=== PATIENT | female | born 1980 | race Caucasian/White ===

== ENCOUNTER 2020-11-03 12:30 | Outpatient (CLI) | payer OTHER, SELFPAY | END 2020-11-03 12:31 | disposition home or self-care (01) | LOC: SLEEP 11-04 10:31 | PROVIDERS: Family Provider Family Medicine; PCP Family Medicine; Visit Provider Family Medicine | DX: G47.33 Obstructive sleep apnea (adult) (pediatric) (principal) | CPT/HCPCS: G0399 ==

== ENCOUNTER 2021-02-24 11:23 | Outpatient (CLI) | payer OTHER, SELFPAY ==
[2021-02-24 11:37] VITALS: BP 156/100; PULSE 95; RESP 18; TEMP 36.9; O2SAT 98; BMI 36.6
[2021-02-24 12:30] VITALS: BP 130/87; PULSE 77; RESP 17; TEMP 36.2; O2SAT 98
[2021-02-24 13:30] VITALS: BP 127/86; PULSE 99; RESP 17; TEMP 36.6; O2SAT 97
== END 2021-02-24 13:30 | disposition home or self-care (01) ==
LOC: OPS 11:29
PROVIDERS: PCP Family Medicine; Visit Provider Nurse Practitioner Family
DX: U07.1 COVID-19 (principal)
CPT/HCPCS: 96365

== ENCOUNTER 2021-04-29 15:51 | Emergency (ER) | payer OTHER, SELFPAY ==
[2021-04-29 15:54] VITALS: BP 159/88; PULSE 95; RESP 18; TEMP 36.7; O2SAT 98; BMI 38.4
--- NOTE | 2021-04-29 16:22 | XRR_ITS ---
PROCEDURE INFORMATION: Exam: XR Chest Exam date and time: 04/29/2021 3:31 PM Age: 41 years old Clinical indication: Pain; Angina pectoris; Additional info: Cp TECHNIQUE: Imaging protocol: XR of the chest. Views: 1 view. COMPARISON: No relevant prior studies available. FINDINGS: Lungs: Unremarkable. No consolidation. Pleural spaces: Unremarkable. No pleural effusion. No pneumothorax. Heart/Mediastinum: Unremarkable. No cardiomegaly. Bones/joints: Unremarkable. XR/XR chest 1V portable [id number] IMPRESSION: No acute findings.
--- NOTE | 2021-04-29 16:22 | ECG_ITS ---
[facility] Test Date: 2021-04-29 Pat Name: Britney Holly Department: Room: Gender: Female Human Resources Partner: : 1980 Requested By: Otto Ingram Order Number: [id number] Mani MD: Charline Tate M.D. Measurements Intervals [place] Rate: 89 P: 50 ME: 152 QRS: 15 QRSD: 85 T: 1 QT: 345 QTc: 421 Interpretive Statements SINUS RHYTHM POSSIBLE LEFT ATRIAL ENLARGEMENT [-0.1mV P-WAVE IN V1/V2] NONSPECIFIC T-WAVE ABNORMALITY No previous ECG available for comparison Electronically Signed On 04-29-2021 19:24:45 CDT by Charline Tate M.D. [id number]
--- NOTE | 2021-04-29 16:23 | W.ED.CHESTPA ---
Documented by User: LOTUS Lainez 04/30/21 07:23 HPI - Chest Pain General: Chief Complaint: Chest Pain Stated Complaint: heart issue Time Seen by Provider: 04/29/21 16:17 History of Present Illness: Patient states that she been feeling kind bad last couple days. Said she now has chest pain and pain going down her left arm. Which started this afternoon. She said she has had 2 episodes of dizziness once yesterday and again around noon time. Denies any nausea or vomiting fever or chills. Patient did have Covid back in February and she states she got over that pretty quickly. Just recently been feeling worse. She does have a history anxiety and takes anxiety medication on a as needed basis and also takes insomnia medicine as needed. Patient states she has no heaviness in her chest she has no abdominal discomfort. Her father has history of PSVT. Associated symptoms: Deny abdominal pain, dyspnea, fever(s), nausea or vomiting Review of Systems Const: Denies: fever(s), chills or body aches Eyes: Denies: eye discomfort ENMT: Denies: throat pain Card: Reports: chest pain (And left arm) Resp: Denies: dyspnea GI: Denies: abdominal pain, nausea or vomiting Skin/Breast: Denies: rash Neuro: Denies: headache(s) Psych: Reports: anxiety; Denies: depression or suicidal ideation [facility] ED PFSH: Family History (Updated 07/30/19 @ 08:27 by Farrah De La Vega RN) Mother Hypertension Diabetes Father Heart disease Grandmother Breast cancer paternal Social History (Updated 07/30/19 @ 08:24 by Farrah De La Vega RN) Smoking and tobacco status: never smoked Alcohol intake: never Physical Exam Const: COMMON NORMALS: no acute distress, patient oriented x3 and alert HENMT: COMMON NORMALS: normocephalic and external ears normal HEAD & SCALP: normocephalic EXTERNAL EAR: Yes external ears normal Eye: COMMON NORMALS: EOMs intact bilaterally Neck/C-Spine: COMMON NORMALS: no JVD Resp: COMMON NORMALS: normal respiratory effort and No use of accessory muscles Cardio: COMMON NORMALS: no JVD GI: INSPECTION: Yes normal to inspection Extremity: COMMON NORMALS: normal to inspection and full ROM Neuro: COMMON NORMALS: patient oriented x3 SENSORIUM/ORIENTATION: Yes alert Psych: COMMON NORMALS: mental status grossly normal Skin: COMMON NORMALS: no rashes or lesions noted GENERAL SKIN EXAM: no rashes or lesions noted Course Vital Signs: Vital signs: Vital Signs Temperature 97.9 F 04/29/21 18:05 Pulse Rate 80 04/29/21 18:05 Respiratory Rate 16 04/29/21 18:05 Blood Pressure 144/92 04/29/21 18:05 Pulse Oximetry 98 04/29/21 18:05 MDM - Chest Pain Lab Data : 04/29/21 16:13 04/29/21 16:13 Radiology Impressions Chest X-Ray 04/29/21 16:22 IMPRESSION: No acute findings. Laboratory Results WBC 8.6 10^3/uL (4.0-10.0) 04/29/21 16:13 RBC 4.49 10^6/uL (4.1-5.3) 04/29/21 16:13 Hgb 13.0 g/dL (11.5-15.3) 04/29/21 16:13 Hct 39.2 % (37.0-47.0) 04/29/21 16:13 MCV 87.3 fl (81-99) 04/29/21 16:13 MCH 29.0 pg (28.0-34.0) 04/29/21 16:13 MCHC 33.2 g/dL (30.0-36.0) 04/29/21 16:13 RDW 12.5 % (12.1-15.1) 04/29/21 16:13 Plt Count 372 10^3/cmm (130-400) 04/29/21 16:13 MPV 10.0 fL (7.4-10.4) 04/29/21 16:13 Neut % (Auto) 63.2 % 04/29/21 16:13 Lymph % (Auto) 26.2 % 04/29/21 16:13 [place] % (Auto) 7.4 % 04/29/21 16:13 Eos % (Auto) 2.2 % 04/29/21 16:13 Baso % (Auto) 0.7 % 04/29/21 16:13 Neut # (Auto) 5.43 10^3/uL (1.8-7.7) 04/29/21 16:13 Lymph # (Auto) 2.3 10^3/uL (0.8-4.8) 04/29/21 16:13 [place] # (Auto) 0.6 10^3/uL (0.2-0.9) 04/29/21 16:13 Eos # (Auto) 0.2 10^3/uL (0.0-0.8) 04/29/21 16:13 Baso # (Auto) 0.1 10^3/uL (0.0-0.1) 04/29/21 16:13 Nucleated RBC % (auto) 0 % 04/29/21 16:13 Nucleated RBCs # 0.0 /100WBC 04/29/21 16:13 Sodium 137 mmol/L (136-145) 04/29/21 16:13 Potassium 4.2 mmol/L (3.5-5.1) 04/29/21 16:13 Chloride 103 mmol/L (98-107) 04/29/21 16:13 Carbon Dioxide 25 mmol/L (22-29) 04/29/21 16:13 Anion Gap 13.2 (5-19) 04/29/21 16:13 BUN 15 mg/dL (6-20) 04/29/21 16:13 Creatinine 0.6 mg/dL (0.5-0.9) 04/29/21 16:13 GFR Calculation 110.7 mL/min (90-130) 04/29/21 16:13 Glucose 87 mg/dL (65-115) 04/29/21 16:13 Calculated Osmolality 284 mOsm/kg (285-295) L 04/29/21 16:13 Calcium 9.6 mg/dL (8.5-10.5) 04/29/21 16:13 Total Bilirubin 0.9 mg/dL (0.15-1.2) 04/29/21 16:13 AST 18 U/L (0-32) 04/29/21 16:13 ALT 21 U/L (0-33) 04/29/21 16:13 Alkaline Phosphatase 72 IU/L (35-105) 04/29/21 16:13 Troponin T Baseline 6 ng/L (0-10) 04/29/21 16:13 Total Protein 7.5 g/dL (6.6-8.7) 04/29/21 16:13 Albumin 4.7 g/dL (3.5-5.2) 04/29/21 16:13 Globulin 2.8 g/dL (1.3-4.6) 04/29/21 16:13 TSH 0.93 uIU/mL (0.27-4.20) 04/29/21 16:13 Urine HCG, Qual Negative (Negative) 04/29/21 17:45 EKG Data EKG 1: EKG interpretation date: 04/29/21 EKG interpretation time: 16:03 Computer generated interpretation: Sinus rhythm? Possible left atrial enlargement. Ventricular rate 89 bpm WA interval 152 ms QRS duration 85 ms QT is 345 ms Discharge Plan Discharge Patient Disposition: Home Clinical Impression: Dizziness, Tachycardia Condition: Stable Prescriptions: No Action temazepam 15 mg capsule 15 - 30 mg PO BEDTIME 0RF duloxetine 60 mg capsule,delayed release(DR/EC) 60 mg PO BID PRN (Reason: Anxiety) 0RF Discharge Orders: Discharge ED (Routine); Ordered 04/29/21 Ordered By: Wilfrid Chaudhari Referrals: Ganesh Turcios DO [Primary Care Provider] - Patient Instructions: Chest Pain (ED) Coding Level of Care Code ED Primer Inserting Machine Operator for Chg Fwd Exam Comprehensive Documented by User: LOTUS Ag 04/29/21 17:36 HPI - Chest Pain General: Chief Complaint: Chest Pain Stated Complaint: heart issue Time Seen by Provider: 04/29/21 16:17 PFSH ED PFSH: Family History (Updated 07/30/19 @ 08:27 by Farrah De La Vega RN) Mother Hypertension Diabetes Father Heart disease Grandmother Breast cancer paternal Social History (Updated 07/30/19 @ 08:24 by Farrah De La Vega RN) Smoking and tobacco status: never smoked Alcohol intake: never Course Vital Signs: Vital signs: Vital Signs Temperature 97.9 F 04/29/21 18:05 Pulse Rate 80 04/29/21 18:05 Respiratory Rate 16 04/29/21 18:05 Blood Pressure 144/92 04/29/21 18:05 Pulse Oximetry 98 04/29/21 18:05 MDM - Chest Pain Medical Decision Making 41-year-old female comes in today with complaints of dizziness along with rapid heart rate. Patient reports intermittent episodes for the last 2 months. Patient reports feeling poorly for over 1 to 2 years. Patient does have family member that has recently been diagnosed with a tachycardia rhythm which he had to have ablation therapy and now is on medication which was her father. On exam patient appears well. Lungs are clear to auscultation. Vital signs are normal except for some elevation in blood pressure. Differential diagnosis includes tachycardia, anxiety, hypothyroidism. Laboratory values were unremarkable. Outstanding labs includes a TSH. EKG showed a sinus rhythm. Troponin was negative. We will arrange patient to follow-up with facilities project manager for further evaluation. I will also arrange for patient to be placed on normal Holter monitor for 7 to 8 days. Patient reported understanding and agreed to plan. Lab Data : 04/29/21 16:13 04/29/21 16:13 Radiology Impressions Chest X-Ray 04/29/21 16:22 IMPRESSION: No acute findings. Laboratory Results WBC 8.6 10^3/uL (4.0-10.0) 04/29/21 16:13 RBC 4.49 10^6/uL (4.1-5.3) 04/29/21 16:13 Hgb 13.0 g/dL (11.5-15.3) 04/29/21 16:13 Hct 39.2 % (37.0-47.0) 04/29/21 16:13 MCV 87.3 fl (81-99) 04/29/21 16:13 MCH 29.0 pg (28.0-34.0) 04/29/21 16:13 MCHC 33.2 g/dL (30.0-36.0) 04/29/21 16:13 RDW 12.5 % (12.1-15.1) 04/29/21 16:13 Plt Count 372 10^3/cmm (130-400) 04/29/21 16:13 MPV 10.0 fL (7.4-10.4) 04/29/21 16:13 Neut % (Auto) 63.2 % 04/29/21 16:13 Lymph % (Auto) 26.2 % 04/29/21 16:13 [place] % (Auto) 7.4 % 04/29/21 16:13 Eos % (Auto) 2.2 % 04/29/21 16:13 Baso % (Auto) 0.7 % 04/29/21 16:13 Neut # (Auto) 5.43 10^3/uL (1.8-7.7) 04/29/21 16:13 Lymph # (Auto) 2.3 10^3/uL (0.8-4.8) 04/29/21 16:13 [place] # (Auto) 0.6 10^3/uL (0.2-0.9) 04/29/21 16:13 Eos # (Auto) 0.2 10^3/uL (0.0-0.8) 04/29/21 16:13 Baso # (Auto) 0.1 10^3/uL (0.0-0.1) 04/29/21 16:13 Nucleated RBC % (auto) 0 % 04/29/21 16:13 Nucleated RBCs # 0.0 /100WBC 04/29/21 16:13 Sodium 137 mmol/L (136-145) 04/29/21 16:13 Potassium 4.2 mmol/L (3.5-5.1) 04/29/21 16:13 Chloride 103 mmol/L (98-107) 04/29/21 16:13 Carbon Dioxide 25 mmol/L (22-29) 04/29/21 16:13 Anion Gap 13.2 (5-19) 04/29/21 16:13 BUN 15 mg/dL (6-20) 04/29/21 16:13 Creatinine 0.6 mg/dL (0.5-0.9) 04/29/21 16:13 GFR Calculation 110.7 mL/min (90-130) 04/29/21 16:13 Glucose 87 mg/dL (65-115) 04/29/21 16:13 Calculated Osmolality 284 mOsm/kg (285-295) L 04/29/21 16:13 Calcium 9.6 mg/dL (8.5-10.5) 04/29/21 16:13 Total Bilirubin 0.9 mg/dL (0.15-1.2) 04/29/21 16:13 AST 18 U/L (0-32) 04/29/21 16:13 ALT 21 U/L (0-33) 04/29/21 16:13 Alkaline Phosphatase 72 IU/L (35-105) 04/29/21 16:13 Troponin T Baseline 6 ng/L (0-10) 04/29/21 16:13 Total Protein 7.5 g/dL (6.6-8.7) 04/29/21 16:13 Albumin 4.7 g/dL (3.5-5.2) 04/29/21 16:13 Globulin 2.8 g/dL (1.3-4.6) 04/29/21 16:13 TSH 0.93 uIU/mL (0.27-4.20) 04/29/21 16:13 Urine HCG, Qual Negative (Negative) 04/29/21 17:45 Discharge Plan Discharge Patient Disposition: Home Clinical Impression: Dizziness, Tachycardia Condition: Stable Prescriptions: No Action temazepam 15 mg capsule 15 - 30 mg PO BEDTIME 0RF duloxetine 60 mg capsule,delayed release(DR/EC) 60 mg PO BID PRN (Reason: Anxiety) 0RF Discharge Orders: Discharge ED (Routine); Ordered 04/29/21 Ordered By: Wilfrid Chaudhari Referrals: Ganesh Turcios DO [Primary Care Provider] - Patient Instructions: Chest Pain (ED) Coding Level of Care Code ED Primer Inserting Machine Operator for Antony Fwd Exam Comprehensive
[2021-04-29 16:30] LABS: Basophils # 0.1 10^3/uL (0.0-0.1); Basophils % 0.7 %; Eosinophils # 0.2 10^3/uL (0.0-0.8); Eosinophils % 2.2 %; Hematocrit 39.2 % (37.0-47.0); Lymphocytes # 2.3 10^3/uL (0.8-4.8); Lymphocytes % 26.2 %; Mean Corpuscular HGB Conc 33.2 g/dL (30.0-36.0); Mean Corpuscular Volume 87.3 fl (81-99); Monocytes # 0.6 10^3/uL (0.2-0.9); Monocytes % 7.4 %; Neutrophils # 5.43 10^3/uL (1.8-7.7); Neutrophils % 63.2 %; Nucleated Red Blood Cells % 0 %; Platelet Count 372 10^3/cmm (130-400); Red Blood Count 4.49 10^6/uL (4.1-5.3); Red Cell Distribution Width 12.5 % (12.1-15.1); White Blood Count 8.6 10^3/uL (4.0-10.0)
[2021-04-29 16:46] LABS: Troponin(5th) Baseline 6 ng/L (0-10)
[2021-04-29 16:47] LABS: Alanine Aminotransferase 21 U/L (0-33); Albumin Level 4.7 g/dL (3.5-5.2); Alkaline Phosphatase 72 IU/L (35-105); Anion Gap 13.2 (5-19); Aspartate Amino Transferase 18 U/L (0-32); Blood Urea Nitrogen 15 mg/dL (6-20); Calcium 9.6 mg/dL (8.5-10.5); Carbon Dioxide 25 mmol/L (22-29); Chloride 103 mmol/L (98-107); Globulin 2.8 g/dL (1.3-4.6); Glomerular Filtration Rate 110.7 mL/min (90-130); Glucose 87 mg/dL (65-115); Osmolality Calculated 284 mOsm/kg (285-295); Potassium 4.2 mmol/L (3.5-5.1); Sodium 137 mmol/L (136-145); Total Bilirubin 0.9 mg/dL (0.15-1.2); Total Protein 7.5 g/dL (6.6-8.7)
[2021-04-29 18:00] VITALS: BP 130/96; BP 141/98; BP 144/92; PULSE 80; PULSE 83; PULSE 87
[2021-04-29 18:04] VITALS: BP 144/92; PULSE 80; RESP 16; TEMP 36.6; O2SAT 98
[2021-04-29 18:05] VITALS: BP 144/92; PULSE 80; RESP 16; TEMP 36.6; O2SAT 98
[2021-04-29 18:40] LABS: Thyroid Stimulating Hormone 0.93 uIU/mL (0.27-4.20)
--- NOTE | 2021-04-30 10:12 | DCPLANNER ---
Addendum entered by Susanne Shea 05/15/21 09:13: Patient had a follow up appointment scheduled with heart care for an appointment and one for testing - patient attended both Addendum entered by Susanne Shea 05/01/21 13:51: Patient has a holter monitor scheduled for Thursday, May 06, 2021 at 11:00. [facility] will call patient with appointment information. Addendum entered by Susanne Shea 04/30/21 14:00: manager motor had message to schedule an out patient halter monitor for patient. manager motor faxed signed order to [facility], who will call patient with appointment information. Original Note: manager motor had message to schedule a follow up appointment for patient with [facility]. manager motor called [facility], spoke with Reyna Del Real, gave clinic patients information. A follow up appointment was scheduled for Thursday, May 06, 2021 at 10:[address] Tate. manager motor called phone number [phone], unable to speak with patient at this time, a voicemail was left for patient to return special education case manager phone call.
== END 2021-04-29 18:00 | disposition home or self-care (01) ==
PROVIDERS: Nurse Practitioner Family; Emergency Provider Nurse Practitioner Family; PCP Family Medicine
DX: R00.0 Tachycardia, unspecified (principal); R42 Dizziness and giddiness
CPT/HCPCS: 71045; 80053; 81025; 84443; 84484; 85025; 93005; 99283

== ENCOUNTER 2021-07-01 14:39 | Outpatient (CLI) | payer OTHER, SELFPAY ==
--- NOTE | 2021-07-01 14:30 | USCV_ITS ---
Britney Holly Age: 41 Gender: F : 1980 Exam Date: 07/01/2021 14:58 Ordering Phys: Charline Tate MD ([email or web address]) Technologist: CATIA Exam Location: [facility] Indication: chest pain BP: 178 / 118 HR: 88 Rhythm: Sinus Technical Quality: Adequate MEASUREMENTS (Male / Female) Normal Values 2D ECHO LV Diastolic Diameter PLAX 3.6 cm 4.2 - 5.9 / 3.9 - 5.3 cm LV Systolic Diameter PLAX 2.5 cm IVS Diastolic Thickness 1.0 cm 0.6 - 1.0 / 0.6 - 0.9 cm IVS Systolic Thickness 1.4 cm LVPW Diastolic Thickness 0.9 cm 0.6 - 1.0 / 0.6 - 0.9 cm LVPW Systolic Thickness 1.6 cm LVOT Diameter 2.0 cm LV Ejection Fraction 2D Teich 59.7 % LV Ejection Fraction MOD 2C 59.9 % LV Ejection Fraction 2C AL 60.8 % LA Diameter 3.1 cm LA Width 2.8 cm LA Height 4.2 cm RA Width 3.3 cm RA Height 3.9 cm Aorta at Sinotubular Diameter 2.1 cm IVC Diameter 1.4 cm M-MODE Aortic Annulus Diameter 2.4 cm LA Ao Ratio MM 1.3 MV E Point Septal Separation 0.6 cm DOPPLER AV Peak Velocity 143.7 cm/s LVOT Peak Velocity 101.0 cm/s AV Area Cont Eq vti 2.1 cm squared AV Area Cont Eq pk 2.2 cm squared MV Peak Velocity 111.0 cm/s MV Area PHT 5.0 cm squared Mitral E to A Ratio 1.3 MV E' Velocity 44.5 cm/s Mitral E to MV E' Ratio 6.9 Mitral E to LV E' Lateral Ratio 6.6 Mitral E to LV E' Septal Ratio 7.3 TR Peak Velocity 275.0 cm/s TR Peak Gradient 30.3 mmHg TR Mean Velocity 205.9 cm/s TR Mean Gradient 17.3 mmHg TR Velocity Time Integral 65.2 cm Right Atrial Pressure 3.0 mmHg Pulmonary Artery Systolic Pressu 33.3 mmHg RV Acceleration Time 0.2 s RV Ejection Time 0.3 s RV AcT/ET 0.5 FINDINGS Left Ventricle Normal left ventricular size and systolic function, EF 59 %. No regional wall motion abnormalities. Right Ventricle The right ventricle is normal in size and function. Right Atrium The right atrium is normal in size. Left Atrium The left atrium is normal in size. Mitral Valve Trace mitral valve regurgitation. Aortic Valve No gross abnormalities noted Tricuspid Valve Trace tricuspid valve regurgitation. TAPSE of 2.36 Pulmonic Valve No gross abnormalities noted Pericardium Normal pericardium without effusion. Aorta Normal ascending aorta dimension. IVC The IVC was of normal size CONCLUSIONS Normal left ventricular size and systolic function, EF 59 %. No regional wall motion abnormalities. Normal RV size and ejection fraction. Trace of mitral and tricuspid regurgitation Estimated pulmonary artery peak systolic pressure of 33 mmHg There are no intracardiac masses. There is no pericardial effusion. No similar previous studies are available for comparison Dr Charline Tate MD FAC (Electronically Signed) Final Date: 02 Jul 2021 08:33 S
== END 2021-07-01 14:40 | disposition home or self-care (01) ==
PROVIDERS: PCP Family Medicine; Visit Provider Internal Medicine Cardiovascular Disease
DX: I08.1 Rheumatic disorders of both mitral and tricuspid valves (principal); R06.00 Dyspnea, unspecified; R94.31 Abnormal electrocardiogram [ECG] [EKG]
CPT/HCPCS: 93306

== ENCOUNTER 2022-02-23 15:19 | Outpatient (CLI) | payer OTHER, SELFPAY ==
--- NOTE | 2022-02-23 15:32 | MM_ITS ---
WS: [id number] BILATERAL 3D TOMOSYNTHESIS DIGITAL SCREENING MAMMOGRAPHY WITH CAD CLINICAL INFORMATION: SCREENING HISTORY: Screening mammogram. No current complaints. COMPARISON: None. TECHNIQUE: Bilateral CC and MLO views. FINDINGS: Scattered fibroglandular densities bilaterally. No suspicious focal mass, asymmetry, calcifications, or architectural distortion. No evidence of malignancy. Incidental intramammary lymph node upper oute r LEFT breast MM/[place] [id number] IMPRESSION: BI-RADS: 2-Benign FOLLOW UP: 1 Year Follow-up Recommend return to annual screening mammography.
== END 2022-02-23 15:20 | disposition home or self-care (01) ==
LOC: RAD 15:22
PROVIDERS: PCP Family Medicine; Visit Provider Nurse Practitioner Family
DX: Z12.31 Encounter for screening mammogram for malignant neoplasm of breast (principal)
CPT/HCPCS: 77063; 77067

== ENCOUNTER 2023-02-22 09:43 | Outpatient (CLI) | payer OTHER, SELFPAY ==
--- NOTE | 2023-02-22 12:33 | P.DIET_ITS ---
Reason for Visit: E66.01 - Morbid (severe) obesity due to excess zhanna Person Interviewed: Patient Medical History, Labs and Background: Britney mentioned issues with sleep and hypertension and some anxiety - this has been a hard year . Height: 5 ft 3 in Weight: 235 lb BMI: 41.7 kg/m2 UBW: Pt would like to be under 200 lbs. IBW: 115lbs give or take 10% Weight History: Jennie said she is uncomfortable where she is right now with her weight and has tried many diets which led to losing wt, but then gaining it back. Concerns and Goals: She would like to be under 200 lbs. Sleep Hygiene: She has difficulty sleeping and mentioned she would be picking up a home sleep study today. 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 When she gets home, anywhere between 4:15 and 6:00 depending on the day, she is exhausted. Thought she tried going to a gym, it wasn't working. Her newest venture, which she is excited about, is a home pilates program. Other Feeding Issues: She is an stress eater per her self report. And, during work, there are often sweets/ sodas that she can choose. Food Allergies and Sensitivities: NKA to food. 24 Hour Recall: Breakfast Time: 6:30-7:00 Bagel Snack Time: Lunch Time: 11:30-2:00 Dewy Rose from home/ something from cafeteria at [facility] Snack Time: Dinner Time: 6:00 Dinner w/family Snack Time: Eating Out: Before, they ate out a lot - especially when there were sporting events. Jennie said they have cut back to Tuesday with her in laws and maybe 1 other time during the week. Soda vs Milk vs Water: She doesn't like water, so we talked about putting fruit or cucumbers/mint in her water to give it an appealing flavor. Regular soda is something she likes - 1/day or 3-4/day. Coffee is not her thing. Additional Comments: When I asked about support systems, she said that her and a co-worker would both be encouraging and helpful. I introduced her via video to Leni Knutson who has lost 100 lbs by addressing behaviors and habits. Recommendations: Assessment: Jennie was relieved when I told her that I wasn't going to ask her to cut out certain food groups or be super restrictive. She wanted to be able to cook for her who also wants to lose weight, as well as their daughter who isn't restrictive. We talked about asking herself 2 questions Am I hungry , then stopping mcfp through a meal and asking Am I full . Diagnosis: Excessive energy intake r/t stress eating AEB BMI of 41.7 kg/m2. Monitoring and Interventions: We talked about 10% wt loss initially as that has been shown to have cardiovascular benefits. Eventually she wants to weigh under 200 lbs. My whole paradigm was towards small changes in habits and behavior, not elimination of foods or food groups. We both agreed that leads to binging and feeling worse about yourself. I printed out 5 days of meal plans for 1500 kcals, not to restrict, but to give a template about amounts that are appropriate per meal. We didn't eliminate any particular food, but we did set a goal of 1 soda and 1 small glass sweet tea per day and drinking more water - having a water bottle that she drank from throughout the day with a goal of between 32-64 oz water/day. We also discussed healthful snacks and that if she wasn't going to/ didn't have time to eat lunch then she could pack a couple of healthy snacks (a printed a list of ideas). Her colleague at work is someone who she can ask for help with being active -even just walking around during the day. Because of sleep issues, I mentioned Melatonin as something to ask her MD if it would interfere with her other meds. Discussed that sleep hygiene affects our appetite and leads to cravings that are difficult to deal with. Lastly recommended not waiting until she was starving to eat as that leads to choices that you regret later. She has my office number/extension and my email for f/u questions. Coding Level of Care Code Nutrition/Individ/Init 60 min Time Spent (min) 60
== END 2023-02-22 09:44 | disposition home or self-care (01) ==
LOC: DIET 09:43
PROVIDERS: PCP Family Medicine; Visit Provider Family Medicine
DX: Z71.3 Dietary counseling and surveillance (principal); E66.01 Morbid (severe) obesity due to excess calories; Z68.42 Body mass index [BMI] 45.0-49.9, adult
CPT/HCPCS: 97802

== ENCOUNTER 2023-02-22 15:45 | Outpatient (CLI) | payer OTHER, SELFPAY | END 2023-02-22 15:46 | disposition home or self-care (01) | LOC: SLEEP 02-23 13:15 | PROVIDERS: PCP Family Medicine; Visit Provider Family Medicine | DX: G47.30 Sleep apnea, unspecified (principal); R06.83 Snoring | CPT/HCPCS: G0399 ==

== ENCOUNTER 2023-03-18 13:57 | Outpatient (CLI) | payer OTHER, SELFPAY ==
--- NOTE | 2023-03-18 14:02 | XR_ITS ---
WS: [id number] XR KUB [id number] REASON FOR EXAM: flank pain FINDINGS: No free air or retroperitoneal air. The bowel gas pattern is unremarkable. No mass or significant calcification is seen. No urinary tract calculus identified. IMPRESSION: No significant abnormality.
== END 2023-03-18 13:58 | disposition home or self-care (01) ==
LOC: RAD 13:57
PROVIDERS: PCP Family Medicine; Visit Provider Family Medicine
DX: R10.9 Unspecified abdominal pain (principal)
CPT/HCPCS: 74018

== ENCOUNTER 2023-03-18 22:01 | Emergency (ER) | payer OTHER, SELFPAY ==
[2023-03-18 22:09] VITALS: BP 161/101; PULSE 98; RESP 16; TEMP 36.6; O2SAT 98
[2023-03-18 22:25] LABS: Add Urine Microscopic? NO; Charge for UA Resulting for Rev
[2023-03-18 22:27] LABS: Bilirubin Urine Neg (Negative); Blood Urine Neg (Negative); Glucose Urine UA Norm (Normal); Ketones Urine Negative (Negative); Leukocyte Esterase Urine Negative (Negative); Nitrate Urine Negative (Negative); Protein Urine Neg (Negative); Urine Appearance Clear (CLEAR); Urine Color Yellow (Yellow); Urobilinogen Urine Norm (Negative); pH Urine 6 (5-7)
[2023-03-18 22:54] LABS: Basophils # 0.1 10^3/uL (0.0-0.1); Basophils % 0.6 %; Eosinophils # 0.3 10^3/uL (0.0-0.8); Eosinophils % 3.3 %; Hematocrit 39.7 % (36-47); Lymphocytes # 2.4 10^3/uL (0.8-4.8); Lymphocytes % 27.2 %; Mean Corpuscular Hemoglobin 28.6 pg (27-33); Mean Corpuscular Volume 86.7 fl (85-98); Mean Platelet Volume 9.6 fL (7.4-10.4); Monocytes # 0.6 10^3/uL (0.2-0.9); Monocytes % 6.9 %; Neutrophils % 61.5 %; Nucleated Red Blood Cells % 0 %; Platelet Count 329 10^3/cmm (157-399); Red Blood Count 4.58 10^6/uL (3.85-5.65); Red Cell Distribution Width 12.8 % (12.1-15.1); White Blood Count 8.78 10^3/uL (3.29-11.43)
[2023-03-18 23:14] LABS: Alanine Aminotransferase 20 U/L (0-33); Albumin Level 4.1 g/dL (3.5-5.2); Alkaline Phosphatase 80 U/L (35-105); Anion Gap 13.9 (5-19); Aspartate Amino Transferase 15 U/L (0-32); Blood Urea Nitrogen 15 mg/dL (6-20); Carbon Dioxide 25 mmol/L (22-29); Chloride 103 mmol/L (98-107); Globulin 3.4 g/dL (1.3-4.6); Glomerular Filtration Rate 78.7 mL/min (90-130); Glucose 120 mg/dL (65-115); Osmolality Calculated 288 mOsm/kg (285-295); Potassium 3.9 mmol/L (3.5-5.1); Sodium 138 mmol/L (136-145); Total Bilirubin 0.4 mg/dL (0.15-1.2); Total Protein 7.5 g/dL (6.6-8.7)
--- NOTE | 2023-03-18 23:38 | ED_ITS ---
Documented by User: LATASHA Arteaga 03/19/23 01:10 HPI - Abdominal Pain 2 General: Chief Complaint: Abdominal Pain Stated Complaint: Peeing Blood Time Seen by Provider: 03/18/23 23:03 Source: patient Mode of arrival: ambulatory Limitations: no limitations History of Present Illness: Patient is a nice 43-year-old female presents to ED today with a complaint of pain to the left side of her abdomen and back as well as radiation into her pelvis. Patient describes feelings of pressure to her abdomen and pelvis. She tells me she was having symptoms of urinary urgency and dysuria and was seen at a walk-in clinic. She was told she had trace blood on her urine analysis. She states she was referred for a KUB to rule out a kidney stone. Patient states she has been straining her urine. She noticed today a small amount of visible blood in the urine. She is not having any flank pain currently. She reports feeling some type of knot/mass near her vagina when she wipes. She has not noticed any vaginal discharge or vaginal odor. No painful intercourse. No history of pelvic organ prolapse. She has not noticed any vaginal bleeding. Denies chance of stating her has had a vasectomy. Reports last PAP smear was last year and reportedly normal. MD elicited complaint: abdominal pain Pertinent past history: none Onset (ago): day(s) Pain Consistency: intermittent Location: LLQ and Pelvis Severity: moderate Pain scale (0-10): 6 Radiation: none Migration to: no migration Exacerbating factors: nothing Relieving factors: nothing Associated Symptoms: Reports bloating, dysuria, hematuria and nausea; Denies change in bowel habits, change in stool character, chills, constipation, GI cramping, diarrhea, fever(s), hematochezia, melena and vomiting Related Data: Date of Last Menstrual Period: 12/16/22 Patient : No Review of Systems 2 Const: Denies: fever(s), chills, body aches, fatigue or malaise Card: Denies: chest pain Resp: Denies: dyspnea GI: Reports: abdominal pain, nausea and bloating; Denies: vomiting, diarrhea, constipation, GI cramping, change in bowel habits, rectal pain, rectal swelling, rectal itching, change in stool character, hematochezia, melena or mucus in stool : Reports: dysuria, urinary urgency, hematuria and pelvic pain; Denies: flank pain, difficulty voiding, urinary frequency, urinary hesitancy, dribbling, genital pruritis, vaginal odor, vaginal bleeding or vaginal discharge Musc: Reports: back pain; Denies: neck pain, extremity pain, extremity swelling or joint pain Skin/Breast: Denies: rash Neuro: Denies: headache(s), numbness in extremities, weakness in extremities or sensory changes PFSH ED 2 PFSH: Medical History COVID Anxiety Insomnia Depression Surgical History S/P cholecystectomy 2015- Dr. Kelly, at [facility] History of right knee surgery 2010- Dr. Paredes at [facility] H/O section 11/2007-Dr. Mercer at [facility] [place] Family History Mother Hypertension Diabetes Father Heart disease CAD (coronary artery disease) Grandmother Breast cancer paternal Cancer Family/Other Bleeding disorder Grandfather Dementia Other Clotting disorder Hyperlipidemia Denies family history of Liver disease Autoimmune disease Hyperthyroidism Hypothyroidism Psychiatric illness Chronic kidney disease (CKD) Suicide Anesthesia complication Lung disease Cardiomyopathy Stroke Social History Smoking and tobacco/nicotine status: never used tobacco/nicotine Second hand smoke exposure: No Alcohol intake: never Substance/Drug Use: never Lives independently: Yes Marital status: Number of children: 2 Current occupational status: employed Current occupation: School counselor Special mehrdad needs: No Agree to transfusion: Yes Female Reproductive History: Date of last menstrual period: 12/16/22 Physical Exam 2 Const: COMMON NORMALS: no acute distress, patient oriented x3, no limitations, alert and well nourished GENERAL APPEARANCE: cooperative O RIENTATION/CONSCIOUSNESS: Yes awake, Yes oriented to person, Yes oriented to place and Yes oriented to time Eye: COMMON NORMALS: no scleral icterus GI: COMMON NORMALS: Normal to inspection, nondistended, normoactive bowel sounds present, Soft to palpation, No hepatosplenomegaly present and no masses INSPECTION: Yes normal to inspection AUSCULTATION: Yes normoactive bowel sounds PALPATION: Yes Soft to palpation, Yes Tenderness to palpation present (GI) (L mid to lower abdomen/pelvis), Yes Guarding due to palpation present (GI), No Rigid due to palpation and Yes No hepatosplenomegaly present : COMMON NORMALS: Yes no CVA tenderness BLADDER/KIDNEY EXAM: Yes no CVA tenderness SPECULUM EXAM - CERVIX: Yes Other cervical findings present (normal cervical examination) GENITAL IMAGES (FEMALE): 1. very small pea sized possible small cyst; she states this is the lump she has been feeling when she wipes; no other genital lesions; this is not herpetic appearing Back/Pelvis: COMMON NORMALS: no CVA tenderness and thoracic and lumbar spine normal to inspection Extremity: GENERAL: Yes normal exam except as noted Neuro: BONNIE COMA SCALE: document GCS findings Bonnie coma scale eye opening: Spontaneous Bonnie coma scale verbal response: Orientated Bonnie coma scale motor response: Obey commands [place] coma scale total score: 15 COMMON NORMALS: patient oriented x3 SENSORIUM/ORIENTATION: Yes alert, Yes oriented to person, Yes oriented to place and Yes oriented to time Skin: COMMON NORMALS: no rashes or lesions noted GENERAL SKIN EXAM: no rashes or lesions noted Course 2 Vital Signs: Vital signs: Vital Signs Temperature 98 F 03/18/23 22:09 Pulse Rate 98 03/18/23 22:09 Respiratory Rate 16 03/18/23 22:09 Blood Pressure 161/101 03/18/23 22:09 Pulse Oximetry 98 03/18/23 22:09 Oxygen Delivery Me thod Room Air 03/18/23 22:09 MDM - Abdominal Pain Lab Data 03/18/23 22:40 03/18/23 22:40 Labs/Radiology: Radiology Impressions Abdomen/Pelvis CT 03/18/23 23:40 IMPRESSION: 1. No acute findings. 2. 3.3 cm simple cyst in the left ovary. Laboratory Results WBC 8.78 10^3/uL (3.29-11.43) 03/18/23 22:40 RBC 4.58 10^6/uL (3.85-5.65) 03/18/23 22:40 Hgb 13.10 g/dL (11.27-16.99) 03/18/23 22:40 Hct 39.7 % (36-47) 03/18/23 22:40 MCV 86.7 fl (85-98) 03/18/23 22:40 MCH 28.6 pg (27-33) 03/18/23 22:40 MCHC 33.0 g/dL (30-55) 03/18/23 22:40 RDW 12.8 % (12.1-15.1) 03/18/23 22:40 Plt Count 329 10^3/cmm (157-399) 03/18/23 22:40 MPV 9.6 fL (7.4-10.4) 03/18/23 22:40 Neut % (Auto) 61.5 % 03/18/23 22:40 Lymph % (Auto) 27.2 % 03/18/23 22:40 Pickett % (Auto) 6.9 % 03/18/23 22:40 Eos % (Auto) 3.3 % 03/18/23 22:40 Baso % (Auto) 0.6 % 03/18/23 22:40 Neut # (Auto) 5.40 10^3/uL (1.8-7.7) 03/18/23 22:40 Lymph # (Auto) 2.4 10^3/uL (0.8-4.8) 03/18/23 22:40 Pickett # (Auto) 0.6 10^3/uL (0.2-0.9) 03/18/23 22:40 Eos # (Auto) 0.3 10^3/uL (0.0-0.8) 03/18/23 22:40 Baso # (Auto) 0.1 10^3/uL (0.0-0.1) 03/18/23 22:40 Nucleated RBC % (auto) 0 % 03/18/23 22:40 Nucleated RBCs # 0.0 /100WBC 03/18/23 22:40 Sodium 138 mmol/L (136-145) 03/18/23 22:40 Potassium 3.9 mmol/L (3.5-5.1) 03/18/23 22:40 Chloride 103 mmol/L (98-107) 03/18/23 22:40 Carbon Dioxide 25 mmol/L (22-29) 03/18/23 22:40 Anion Gap 13.9 (5-19) 03/18/23 22:40 BUN 15 mg/dL (6-20) 03/18/23 22:40 Creatinine 0.8 mg/dL (0.5-0.9) 03/18/23 22:40 GFR Calculation 78.7 mL/min (90-130) L 03/18/23 22:40 Glucose 120 mg/dL (65-115) H 03/18/23 22:40 Calculated Osmolality 288 mOsm/kg (285-295) 03/18/23 22:40 Calcium 9.0 mg/dL (8.5-10.5) 03/18/23 22:40 Total Bilirubin 0.4 mg/dL (0.15-1.2) 03/18/23 22:40 AST 15 U/L (0-32) 03/18/23 22:40 ALT 20 U/L (0-33) 03/18/23 22:40 Alkaline Phosphatase 80 U/L (35-105) 03/18/23 22:40 Total Protein 7.5 g/dL (6.6-8.7) 03/18/23 22:40 Albumin 4.1 g/dL (3.5-5.2) 03/18/23 22:40 Globulin 3.4 g/dL (1.3-4.6) 03/18/23 22:40 HCG, Qual Negative (Negative) 03/18/23 22:20 Urine Color Yellow (Yellow) 03/18/23 22:20 Urine Appearance Clear (CLEAR) 03/18/23 22:20 Urine pH 6 (5-7) 03/18/23 22:20 Ur Specific [place] 1.020 (1.005-1.030) 03/18/23 22:20 Urine Protein Neg (Negative) 03/18/23 22:20 Urine Glucose (UA) Norm (Normal) 03/18/23 22:20 Urine Ketones Negative (Negative) 03/18/23 22:20 Urine Blood Neg (Negative) 03/18/23 22:20 Urine Nitrate Negative (Negative) 03/18/23 22:20 Urine Bilirubin Neg (Negative) 03/18/23 22:20 Urine Urobilinogen Norm mg/dL (Negative) 03/18/23 22:20 Ur Leukocyte Esterase Negative (Negative) 03/18/23 22:20 Discharge Plan Discharge Patient Disposition: Home Clinical Impression: Ovarian cyst Qualifiers: Laterality: left Qualified Code(s): N83.202 - Unspecified ovarian cyst, left side Condition: Stable Prescriptions: No Action fluoxetine 40 mg capsule 40 mg PO DAILY Qty: 90 1RF hydroxyzine HCl 25 mg tablet 25 mg PO BID PRN (Reason: anxiety) Qty: 120 1RF trazodone 100 mg tablet 100 mg PO DAILY Qty: 90 1RF duloxetine 30 mg capsule,delayed release(DR/EC) 30 mg PO DAILY Qty: 90 1RF Discharge Orders: Discharge ED (Routine); Ordered 03/19/23 Ordered By: Hal Wise Referrals: Caleb Hooper MD [Primary Care Provider] - 1 week Patient Instructions: Ovarian Cyst (ED) Activity Restrictions/Additional Instructions: Your lab work was unremarkable for any acute cause of abdominal pain. Your CT scan showed an left ovarian cyst. Please follow-up with your family practice physician and/or TRACTOR MECHANIC APPRENTICE for further evaluation and treatment. Coding Level of Care Code ED Tool Distributor for Chg Fwd Documented by User: Hal Wise DO 03/19/23 04:04 HPI - Abdominal Pain 2 General: Chief Complaint: Abdominal Pain Stated Complaint: Peeing Blood Time Seen by Provider: 03/18/23 23:03 PFS ED 2 PFSH: Medical History COVID Anxiety Insomnia Depression Surgical History S/P cholecystectomy 2015- Dr. Kelly, at [facility] History of right knee surgery 2010- Dr. Paredes at [facility] H/O section 11/2007-Dr. Mercer at [facility] Family History Mother Hypertension Diabetes Father Heart disease CAD (coronary artery disease) Grandmother Breast cancer paternal Cancer Family/Other Bleeding disorder Grandfather Dementia Other Clotting disorder Hyperlipidemia Denies family history of Liver disease Autoimmune disease Hyperthyroidism Hypothyroidism Psychiatric illness Chronic kidney disease (CKD) Suicide Anesthesia complication Lung disease Cardiomyopathy Stroke Social History Smoking and tobacco/nicotine status: never used tobacco/nicotine Second hand smoke exposure: No Alcohol intake: never Substance/Drug Use: never Lives independently: Yes Marital status: Number of children: 2 Current occupational status: employed Current occupation: School counselor Special mehrdad needs: No Agree to transfusion: Yes Physical Exam 2 : GENITAL IMAGES (FEMALE): 1. very small pea sized possible small cyst; she states this is the lump she has been feeling when she wipes; no other genital lesions; this is not herpetic appearing Neuro: BONNIE COMA SCALE: document GCS findings [place] coma scale total score: 15 Course 2 Vital Signs: Vital signs: Vital Signs Temperature 98 F 03/18/23 22:09 Pulse Rate 98 03/18/23 22:09 Respiratory Rate 16 03/18/23 22:09 Blood Pressure 161/101 03/18/23 22:09 Pulse Oximetry 98 03/18/23 22:09 Oxygen Delivery Me thod Room Air 03/18/23 22:09 MDM - Abdominal Pain Medical Decision Making Patient's care was transferred over to myself upon checkout a midlevel at the end of her shift. We are waiting on CT scan. The CT scan come back showed no acute findings except 3.3 simple cyst on left ovary. Otherwise lab work was unremarkable. Differential Diagnosis Unlikely abdominal pain, acute appendicitis, calculus of kidney, constipation, diverticulitis, endometriosis, gastroenteritis, pancreatitis or small bowel obstruction Lab Data I reviewed the patient's lab results. 03/18/23 22:40 03/18/23 22:40 Labs/Radiology: Radiology Impressions Abdomen/Pelvis CT 03/18/23 23:40 IMPRESSION: 1. No acute findings. 2. 3.3 cm simple cyst in the left ovary. Laboratory Results WBC 8.78 10^3/uL (3.29-11.43) 03/18/23 22:40 RBC 4.58 10^6/uL (3.85-5.65) 03/18/23 22:40 Hgb 13.10 g/dL (11.27-16.99) 03/18/23 22:40 Hct 39.7 % (36-47) 03/18/23 22:40 MCV 86.7 fl (85-98) 03/18/23 22:40 MCH 28.6 pg (27-33) 03/18/23 22:40 MCHC 33.0 g/dL (30-55) 03/18/23 22:40 RDW 12.8 % (12.1-15.1) 03/18/23 22:40 Plt Count 329 10^3/cmm (157-399) 03/18/23 22:40 MPV 9.6 fL (7.4-10.4) 03/18/23 22:40 Neut % (Auto) 61.5 % 03/18/23 22:40 Lymph % (Auto) 27.2 % 03/18/23 22:40 Pickett % (Auto) 6.9 % 03/18/23 22:40 Eos % (Auto) 3.3 % 03/18/23 22:40 Baso % (Auto) 0.6 % 03/18/23 22:40 Neut # (Auto) 5.40 10^3/uL (1.8-7.7) 03/18/23 22:40 Lymph # (Auto) 2.4 10^3/uL (0.8-4.8) 03/18/23 22:40 Pickett # (Auto) 0.6 10^3/uL (0.2-0.9) 03/18/23 22:40 Eos # (Auto) 0.3 10^3/uL (0.0-0.8) 03/18/23 22:40 Baso # (Auto) 0.1 10^3/uL (0.0-0.1) 03/18/23 22:40 Nucleated RBC % (auto) 0 % 03/18/23 22:40 Nucleated RBCs # 0.0 /100WBC 03/18/23 22:40 Sodium 138 mmol/L (136-145) 03/18/23 22:40 Potassium 3.9 mmol/L (3.5-5.1) 03/18/23 22:40 Chloride 103 mmol/L (98-107) 03/18/23 22:40 Carbon Dioxide 25 mmol/L (22-29) 03/18/23 22:40 Anion Gap 13.9 (5-19) 03/18/23 22:40 BUN 15 mg/dL (6-20) 03/18/23 22:40 Creatinine 0.8 mg/dL (0.5-0.9) 03/18/23 22:40 GFR Calculation 78.7 mL/min (90-130) L 03/18/23 22:40 Glucose 120 mg/dL (65-115) H 03/18/23 22:40 Calculated Osmolality 288 mOsm/kg (285-295) 03/18/23 22:40 Calcium 9.0 mg/dL (8.5-10.5) 03/18/23 22:40 Total Bilirubin 0.4 mg/dL (0.15-1.2) 03/18/23 22:40 AST 15 U/L (0-32) 03/18/23 22:40 ALT 20 U/L (0-33) 03/18/23 22:40 Alkaline Phosphatase 80 U/L (35-105) 03/18/23 22:40 Total Protein 7.5 g/dL (6.6-8.7) 03/18/23 22:40 Albumin 4.1 g/dL (3.5-5.2) 03/18/23 22:40 Globulin 3.4 g/dL (1.3-4.6) 03/18/23 22:40 HCG, Qual Negative (Negative) 03/18/23 22:20 Urine Color Yellow (Yellow) 03/18/23 22:20 Urine Appearance Clear (CLEAR) 03/18/23 22:20 Urine pH 6 (5-7) 03/18/23 22:20 Ur Specific [place] 1.020 (1.005-1.030) 03/18/23 22:20 Urine Protein Neg (Negative) 03/18/23 22:20 Urine Glucose (UA) Norm (Normal) 03/18/23 22:20 Urine Ketones Negative (Negative) 03/18/23 22:20 Urine Blood Neg (Negative) 03/18/23 22:20 Urine Nitrate Negative (Negative) 03/18/23 22:20 Urine Bilirubin Neg (Negative) 03/18/23 22:20 Urine Urobilinogen Norm mg/dL (Negative) 03/18/23 22:20 Ur Leukocyte Esterase Negative (Negative) 03/18/23 22:20 All radiology interpretation(s) finalized by discharge Discharge Plan Discharge Patient Disposition: Home Clinical Impression: Ovarian cyst Qualifiers: Laterality: left Qualified Code(s): N83.202 - Unspecified ovarian cyst, left side Condition: Stable Prescriptions: No Action fluoxetine 40 mg capsule 40 mg PO DAILY Qty: 90 1RF hydroxyzine HCl 25 mg tablet 25 mg PO BID PRN (Reason: anxiety) Qty: 120 1RF trazodone 100 mg tablet 100 mg PO DAILY Qty: 90 1RF duloxetine 30 mg capsule,delayed release(DR/EC) 30 mg PO DAILY Qty: 90 1RF Discharge Orders: Discharge ED (Routine); Ordered 03/19/23 Ordered By: Hal Wise Referrals: Caleb Hooper MD [Primary Care Provider] - 1 week Patient Instructions: Ovarian Cyst (ED) Activity Restrictions/Additional Instructions: Your lab work was unremarkable for any acute cause of abdominal pain. Your CT scan showed an left ovarian cyst. Please follow-up with your family practice physician and/or TRACTOR MECHANIC APPRENTICE for further evaluation and treatment. Coding Level of Care Code ED Tool Distributor for Antony Hutchins
--- NOTE | 2023-03-18 23:40 | CTR_ITS ---
PROCEDURE INFORMATION: Exam: CT Abdomen And Pelvis With Contrast Exam date and time: 03/19/2023 1:14 AM Age: 43 years old Clinical indication: Abdominal pain; Localized; Left lower quadrant (llq); Prior surgery; Surgery date: 6+ months; Surgery type: Gb. Csection; Patient HX: Llq/pelvic pain. ; Additional info: L lower abdominal/pelvic pain/pressure TECHNIQUE: Imaging protocol: Computed tomography of the abdomen and pelvis with contrast. Radiation optimization: All CT scans at this facility use at least one of these dose optimization techniques: automated exposure control; mA and/or kV adjustment per patient size (includes targeted exams where dose is matched to clinical indication); or iterative reconstruction. Contrast material: OMNI 350; Contrast volume: 100 ml; Contrast route: INTRAVENOUS (IV); COMPARISON: CR XR KUB [id number] 03/18/2023 2:12 PM RADIATION DOSE METRICS: Total DLP (mGy-cm): 1216.03 FINDINGS: Liver: Hepatic steatosis. Gallbladder and bile ducts: Cholecystectomy. Pancreas: Pancreas is unremarkable. No main duct dilation. Spleen: Spleen is unremarkable. Adrenal glands: No nodules. Kidneys and ureters: Subcentimeter right renal hypodensity. Otherwise unremarkable. Stomach and bowel: No bowel obstruction. Mild colonic stool burden. Appendix: Normal appendix Intraperitoneal space: Unremarkable. No free air. No significant fluid collection. Vasculature: No abdominal aortic aneurysm. Lymph nodes: No enlarged lymph nodes. Urinary bladder: Unremarkable as visualized. Reproductive: 3.3 cm simple cyst in the left ovary. Bones/joints: No acute fracture. No aggressive osseous lesions. Soft tissues: Unremarkable. CT/CT abdomen pelvis w con* [id number] IMPRESSION: 1. No acute findings. 2. 3.3 cm simple cyst in the left ovary.
[2023-03-18 23:46] LABS: HCG Qualitative Urine. Negative (Negative)
[2023-03-19] MEDS: iohexol 350 mg/mL 500 mL Btl (per mL) IV (01:16)
== END 2023-03-19 02:22 | disposition home or self-care (01) ==
PROVIDERS: Emergency Provider Physician Assistant; PCP Family Medicine
DX: N83.202 Unspecified ovarian cyst, left side (principal); N83.292 Other ovarian cyst, left side
CPT/HCPCS: 36415; 74177; 80053; 81003; 81025; 85025; 99285; Q9967

== ENCOUNTER → 2023-04-14 08:30 | Outpatient (BNVA) | payer OTHER, SELFPAY | PROVIDERS: PCP Family Medicine; Visit Provider Obstetrics & Gynecology | DX: N92.1 Excessive and frequent menstruation with irregular cycle (principal); N83.202 Unspecified ovarian cyst, left side | CPT/HCPCS: 83001; 84146; 84443; 85025 ==

== ENCOUNTER → 2023-04-27 15:31 | Outpatient (BNVA) | payer OTHER, SELFPAY | PROVIDERS: PCP Family Medicine; Visit Provider Obstetrics & Gynecology | DX: N83.202 Unspecified ovarian cyst, left side (principal) | CPT/HCPCS: 76830 ==

== ENCOUNTER → 2024-01-23 07:20 | Outpatient (BNVA) | payer OTHER, SELFPAY | PROVIDERS: PCP Family Medicine; Visit Provider Nurse Practitioner Family | DX: J02.9 Acute pharyngitis, unspecified (principal); J03.90 Acute tonsillitis, unspecified | CPT/HCPCS: 87880 ==

== ENCOUNTER 2024-05-29 14:01 | Outpatient (CLI) | payer OTHER, SELFPAY ==
--- NOTE | 2024-05-29 14:00 | MM_ITS ---
WS: [id number] VIEWS: MLO and CC views both breasts. 3D digital tomosynthesis is also included in this exam. Comparison made with prior exam of 02/23/2022. Findings: There are scattered areas of fibroglandular density. No suspicious mass, tumor calcification or architectural distortion noted in either breast. Intramammary lymph node in the upper outer LEFT breast. MM/MM scr BI tomosynthesis [id number] Impression: BI-RADS: 2 - Benign FOLLOW-UP: 1 Year Follow-up This mammogram was also analyzed by the Computer Aided Detection System [employer]2 [employer] Work[employer].
== END 2024-05-29 14:02 | disposition home or self-care (01) ==
LOC: MOBLMAM 14:03
PROVIDERS: PCP Family Medicine; Visit Provider Family Medicine
DX: Z12.31 Encounter for screening mammogram for malignant neoplasm of breast (principal); R92.323 Mammographic fibroglandular density, bilateral breasts; R59.0 Localized enlarged lymph nodes
CPT/HCPCS: 77063; 77067

== ENCOUNTER → 2024-08-22 10:02 | Outpatient (BNVA) | payer OTHER, SELFPAY | PROVIDERS: PCP Family Medicine; Visit Provider Family Medicine | DX: I10 Essential (primary) hypertension (principal); Z86.39 Personal history of other endocrine, nutritional and metabolic disease | CPT/HCPCS: 80053; 80061; 83036; 84439; 84443; 85025; 86376 ==